=== PATIENT | male | born 2000 | race Hispanic/Latino ===

== ENCOUNTER 2023-09-02 10:43 | Emergency (ER) | payer MEDICAID, SELFPAY ==
[2023-09-02 10:44] VITALS: BP 154/99; PULSE 83; RESP 16; TEMP 36.8; O2SAT 100; BMI 30.4
--- NOTE | 2023-09-02 11:01 | EDS_ITS ---
HPI History of Present Illness Chief Complaint: Sore Throat Narrative Narrative: 23-year-old male who denies significant past medical history except for smoking marijuana on occasion, presents with sore throat, and reported bleeding from his throat. He states his symptoms began yesterday. Over the last 24 hours he has spit up blood-tinged saliva, but states it became worse to the point where he reportedly spit up to red solo cups worth of blood. He does not take blood thinners. He states that he saw an emergency department where he lives in [facility]. At that time, he was told that he may have more of a tonsillar bleed. He woke up this morning with blood in his throat. He denies any other bleeding diathesis. He is concerned about bleeding and soreness in his throat. PFSH PFSH Allergy/AdvReac Type Severity Reaction Status Date / Time No Known Allergies Allergy Verified 09/02/23 10:46 Social History Smoking Status: Never smoker ROS ROS ED ROS Narrative Constitutional: No fever, no chills. HEENT: Today sore throat. Positive bleeding in throat, blood pooling in throat this morning. No neck pain. No loss of vision. No rhinorrhea. Cardiovascular: No chest pain. No palpitations. No pedal edema. Respiratory: Occasional cough, no shortness of breath. Abdominal: No abdominal pain. No nausea. No vomiting. Genitourinary: No dysuria. No hematuria. Musculoskeletal: No myalgias. No arthralgias. Neurologic: No headaches. No dizziness. No lightheadedness. Skin: No rash. No change in color. Psychiatric: No depression. No anxiety. EXAM Physical Exam Narrative Exam Narrative: Afebrile. Vital signs noted. HEENT: Normocephalic. Atraumatic. PERRL, EOMI. Neck soft and supple. No point tenderness or step off. No active bleeding of throat or tonsil. No fresh or dried blood in posterior pharynx. Airway patent. No drooling or trismus. Cardiovascular: Regular rate and rhythm. No murmurs, rubs, or gallops appreciated. Respiratory: No tachypnea. Lungs clear to auscultation bilaterally. Gastrointestinal: Abdomen soft, nontender, with normoactive bowel sounds. No rebound or guarding. Neurological: Awake. Alert. Nonfocal, nonlateralizing. Skin: No rash. Normal color. No pallor. Musculoskeletal: No pedal edema. Full range of motion extremities. Const Vital Signs: 09/02/23 10:44 Temperature 98.2 F Temperature Source Temporal Pulse Rate 83 Respiratory Rate 16 Blood Pressure 154/99 H Blood Pressure Mean 117 Pulse Ox 100 Oxygen Delivery Method Room Air MDM MDM MDM Narrative Medical decision making narrative: There are no active signs of bleeding in the patient's throat or noted otherwise on the exam. He requested a chest x-ray be performed. He could be having slight hemoptysis from bronchitis as his pulse ox is 100% on room air. Two-view chest x-ray will be obtained to help rule out any hemothorax or consolidation. I would suspect to see blood on x-ray if he aspirated or had a profuse amount of bleeding throughout the night. As there is no active bleeding, and he does not appear pallor, I do not feel that any laboratory work is indicated. Given his sore throat I attained x-rays of the neck as well. I do not feel that any respiratory swabs or strep swab is indicated. He has no clinical signs of acute pharyngitis. X-rays of the soft tissue neck interpreted by myself independently shows no evidence of obstruction or epiglottitis. Additionally, chest x-ray in 2 views also interpreted by myself independently shows no evidence of hemothorax or consolidation, no pneumothorax. I reviewed the radiology reports on both of these x-rays which confirms my independent interpretations. At this point in time, as he has no active bleeding from his throat, I feel he can be discharged to follow-up. He was referred to otolaryngology on-call. He will return with increased bleeding, new or worsening symptoms. I do not feel he requires admission or transfer. Disposition is discharged home in stable condition. History & Record Review Discussion w/independent historian: Patient Additional record(s) reviewed:: No prior records Radiography Diagnostic Testing: Clinical Impression(s) from Imaging Studies Chest X-Ray 09/02/23 11:11 IMPRESSION: No radiographic evidence of acute cardiopulmonary disease. Electronically Signed: Cody Ricardo MD at 11:23 EST , Soft Tissue Neck X-Ray 09/02/23 11:11 IMPRESSION: Negative neck x-rays. Electronically Signed: Cody Ricardo MD at 11:24 EST , Discharge Plan Triage Chief Complaint: Sore Throat ED Provider: Cody Nunez Dx/Rx/DC Orders Clinical Impression: Bleeding from throat, Throat pain in adult Instructions: ED Pain, Acute, Uncertain Cause Primary Care Provider: Care Physician,No Primary Referrals: Corona Ratliff MD [Med Staff - Active Staff] - As soon as possible NOT,DEFINED [Non-Staff] - Activity Restrictions/Additional Instructions: Return with increased bleeding from throat, new or worsening symptoms. Disposition Disposition: Home, Self Care
--- NOTE | 2023-09-02 11:11 | RAD_ITS ---
EXAM: XR SOFT TISSUE NECK CLINICAL INDICATION: sore throat TECHNIQUE: Frontal and lateral views of the soft tissues of the neck. COMPARISON: No relevant prior studies available. FINDINGS: AIRWAY: Unremarkable. Grossly patent. SOFT TISSUES: Unremarkable. No radiopaque foreign body. No pathologic thickening or enlargement of the epiglottis. RAD/Neck for Soft Tissue IMPRESSION: Negative neck x-rays. Electronically Signed: Cody Ricardo MD at 11:24 EST ,
--- NOTE | 2023-09-02 11:11 | RAD_ITS ---
EXAM: XR CHEST, 2 VIEWS CLINICAL INDICATION: cough TECHNIQUE: Frontal and lateral views of the chest. COMPARISON: No relevant prior studies available. FINDINGS: LUNGS AND PLEURAL SPACES: Unremarkable. No consolidation or edema. No pneumothorax. No effusion. HEART: Unremarkable. Cardiac silhouette not enlarged. MEDIASTINUM: Central airways and mediastinal contour are unremarkable. BONES/JOINTS: Unremarkable. No acute fracture. SOFT TISSUES: Unremarkable. RAD/Chest PA and Lateral IMPRESSION: No radiographic evidence of acute cardiopulmonary disease. Electronically Signed: Cody Ricardo MD at 11:23 EST ,
--- OUTSIDE RECORDS SUMMARY | 2023-09-02 12:40 | XMS RPT_ITS | CCD ---
Author Name Unknown Address [address] [place] [address] Organization [facility] Care Team Providers Care Quality Tech Name Role Phone Unavailable Primary Care Provider JYOTI Moreland Attending Unavailable JYOTI RAWLS Referring Unavailable CHARISSE CYR, HUMBERTO Russell Attending Michael ZHENG MD, TONJA Mei Primary Care Unavaila ble Unavailable Primary Care Provider Michael rhoades Medications Current Medications Medication Drug Class(es) Dates Sig (Normalized) Sig (Original) benzonatate 100 mg oral capsule (1 source) Non-narcotic Antitussive Start: 06-24-2022 End: 07-01-2022 take 2 capsules by mouth three times daily as needed benzonatate (TESSALON PERLES) 100 mg capsule Indications: Moderate persistent asthmatic bronchitis without complication Take 2 capsules by mouth three times daily as needed for up to 7 days. 42 capsule 0 06/24/2022 07/01/2022 Active Completed/Discontinued Medications Medication Drug Class(es) Dates Sig (Normalized) Sig (Original) [id number] 200 actuat albuterol 0.09 mg/actuat metered dose inhaler (8 sources) beta2-Adrenergic Agonist Start: 06-24-2022 End: 07-01-2022 take 2 puff(s) by inhalation four times daily as needed for wheezing albuterol HFA (PROVENTIL HFA, VENTOLIN HFA) 90 mcg/actuation inhaler Indications: Moderate persistent asthmatic bronchitis without complication Inhale 2 Puffs as instructed four times daily as needed for wheezing/shortness of breath for up to 7 days. 1 Each 0 06/24/2022 Active Problems Problem Classification Problem Date Documented Date Episodic/Chronic Asthma (2 sources) Uncomplicated moderate persistent asthma; Translations: [Moderate persistent asthma, uncomplicated] Onset: 06-24-2022 Chronic Immunizations and screening for infectious disease (2 sources) Suspected disease caused by 2019-nCoV; Translations: [Suspected COVID-19 virus infection] Episodic Results Test Name Value Interpretation Reference Range Facil ity Vital Signs Date Time Vital Sign Value Performing Clinician Teresa bacon 01-06-2023 12:57-0400 Body temperature 97.59 [degF] Walter Hylton MD Work Phone: [facility] 01-06-2023 12:57-0400 Body weight 105.33 kg Walter Hylton MD Work Phone: [facility] 01-06-2023 12:57-0400 Diastolic blood pressure 70 mm[Hg] Walter Hylton MD Work Phone: [facility] 01-06-2023 12:57-0400 Heart rate 71 /min Walter Hylton MD Work Phone: [facility] 01-06-2023 12:57-0400 Respiratory rate 18 /min Walter Hylton MD Work Phone: [facility] 01-06-2023 12:57-0400 SaO2% (BldA) [Mass fraction] 99 % Walter Hylton MD Work Phone: [facility] 01-06-2023 12:57-0400 Systolic blood pressure 140 mm[Hg] Walter Hylton MD Work Phone: [facility] 06-24-2022 09:06-0400 Body temperature 98.01 [degF] [facility] [place] Work Phone: [facility] 06-24-2022 09:06-0400 Body weight 92.99 kg [facility] [place] Work Phone: [facility] 06-24-2022 09:06-0400 Diastolic blood pressure 78 mm[Hg] [facility] [place] Work Phone: [facility] 06-24-2022 09:06-0400 Heart rate 85 /min [facility] [place] Work Phone: [facility] 06-24-2022 09:06-0400 Respiratory rate 18 /min [facility] [place] Work Phone: [facility] 06-24-2022 09:06-0400 SaO2% (BldA) [Mass fraction] 100 % [facility] [place] Work Phone: [facility] 06-24-2022 09:06-0400 Systolic blood pressure 123 mm[Hg] [facility] [place] Work Phone: [facility] 05-07-2022 10:08-0400 Body temperature 97.7 [degF] Re [place] X RAY SERVICE ENGINEER.BERRY PLANTER Work Phone: [facility] 05-07-2022 10:08-0400 Body weight 91.63 kg Re [place] X RAY SERVICE ENGINEER.BERRY PLANTER Work Phone: [facility] 05-07-2022 10:08-0400 Diastolic blood pressure 80 mm[Hg] Re [place] X RAY SERVICE ENGINEER.BERRY PLANTER Work Phone: [facility] 05-07-2022 10:08-0400 Heart rate 61 /min Re [place] X RAY SERVICE ENGINEER.BERRY PLANTER Work Phone: [facility] 05-07-2022 10:08-0400 SaO2% (BldA) [Mass fraction] 99 % Re [place] X RAY SERVICE ENGINEER.BERRY PLANTER Work Phone: [facility] 05-07-2022 10:08-0400 Systolic blood pressure 122 mm[Hg] Re [place] X RAY SERVICE ENGINEER.BERRY PLANTER Work Phone: [facility] Encounters Encounter Date Encounter Type Care Provider Facility Start: 01-08-2023 Telephone encounter Alexsandra Yordy nner X RAY SERVICE ENGINEER.BERRY PLANTER Work Phone: [facility] [place] Procedures Date Procedure Procedure Detail Performing Clinician Start: 01-06-2023 Iadna chlamydia trachomatis amplified probe tq Walter Hylton MD Work Phone: Start: 06-24-2022 Radiologic exam ches t 2 views Jyoti Rawls DO Work Phone: Plan of Treatment Date Care Activity Detail Author Start: 05-01-2023 [facility] Start: 08-31-2022 DEPRESSION ASSESSMENT DEPRESSION ASSESSMENT [facility] Start: 05-07-2022 End: 05-21-2022 Influenza virus A and B RNA and SARS-CoV-2 (COVID-19) N gene panel - Respiratory specimen by AVANI with probe detection COVID WITH FLUA+B, ROUTINE Microbiology Routine Suspected COVID-19 virus infection Expected: 05/07/2022, Expires: 05/21/2022 [facility] Work Phone: Payers Date Payer Category Payer Unknown [id number] 2015 Medicaid [id number] 2015 Medicaid [id number] 2001 Unknown [id number] Social History Date Type Detail Facility Start: 05-07-2022 Tobacco smoking status [place]IS Occasional tobacco smoker [facility] History of tobacco use Cigarette Smoker [facility] Start: 2000 Sex Assigned At Not on file [facility] Start: 04-27-2022 End: 06-24-2022 Exposure to SARS-CoV-2 (event) Not sure [facility] Work Phone: Start: 06-24-2022 Tobacco smoking status OKIS Smokes tobacco daily [facility] Start: 06-24-2022 End: 01-06-2023 Tobacco use and exposure Smokeless tobacco non-user [facility] Start: 06-24-2022 Alcohol intake Ex-drinker (finding) [facility] Start: 01-06-2023 Tobacco smoking status [place] Never smoked tobacco [facility] Start: 01-06-2023 Alcohol intake Current drinke r of alcohol (finding) [facility] Start: 01-06-2023 Alcohol Comment once a month [facility] NEGATED: Highlighted rowStart: NINF History of tobacco use Passive smoker [facility] Clinical Notes 05-07-2022 to 01-08-2023 Telephone Encounter - Amy Mullen LPN - 01/08/2023 1:08 PM EDTTelephone Encounter - Liya Vila LPN - 01/08/2023 10:08 AM Malina Hylton MD - 01/06/2023 2:58 PM EDTPatient Instructions Note Date & Type Note [facility] 01-08-2023 Miscellaneous Notes Formattin g of this note might be different from the original. Incoming call to discuss results with pt. Pt voiced understanding of results. No further concerns. Amy Mullen LPN Message left to return call. Liya Vila LPN ----- Message from Alexsandra Vaz APRN.BERRY PLANTER sent at 01/07/2023 8:15 AM EDT ----- Please notify patient of negative STI results. documented in this encounter [facility] 01-06-2023 History of Presen t illness Narrative Jeffery Davis is a 22 year old male who presents with STD (Patient states he was exposed to gonorrhea about 1 week ago//Denies symptoms at this time /). Notes that partner was treated. Patient denies any symptoms at this time. No past medical history on file. There is no problem list on file for this patient. Current Outpatient Medications Medication Sig Dispense Refill atomoxetine (STRATTERA) 40 mg capsule Take 40 mg by mouth once daily. albuterol HFA (PROVENTIL HFA, VENTOLIN HFA) 90 mcg/actuation inhaler Inhale 2 Puffs as instructed every 4 hours as needed for wheezing/shortness of breath. 1 Each 0 dexAMETHasone (DECADRON) 4 mg tablet Take 1 tablet by mouth once daily. (Patient not taking: Reported on 01/06/2023) 4 tablet 0 albuterol HFA (PROVENTIL HFA, VENTOLIN HFA) 90 mcg/actuation inhaler Inhale 2 Puffs as instructed four times daily as needed for wheezing/shortness of breath for up to 7 days. 1 Each 0 No current facility-administered medications for this visit. Social History Tobacco Use Smoking status: Never Passive exposure: Never Smokeless tobacco: Never Vaping Use Vaping Use: Never used Substance Use Topics Alcohol use: Yes Comment: once a month Drug use: Yes Types: Marijuana Alcohol Use: Yes (once a month) Tobacco Use: Never No family history on file. Review of Systems Constitutional: Negative. HENT: Negative. Eyes: Negative. Respiratory: Negative. Cardiovascular: Negative. Gastrointestinal: Negative. Genitourinary: Negative. Musculoskeletal: Negative. Skin: Negative. Neurological: Negative. Endo/Heme/Allergies: Negative. Psychiatric/Behavioral: Negative. BP 140/70 Pulse 71 Temp (Src) 97.6 (Temporal) Resp 18 Wt 232 lb 3.2 oz (105.3kg) SpO2 99% Physical Exam Constitutional: Appearance: Normal appearance. HENT: Head: Normocephalic and atraumatic. Mouth/Throat: Mouth: Mucous membranes are moist. Eyes: Conjunctiva/sclera: Conjunctivae normal. Pulmonary: Effort: Pulmonary effort is normal. Musculoskeletal: General: Normal range of motion. Cervical back: Normal range of motion. Neurological: General: No focal deficit present. Mental Status: He is alert and oriented to person, place, and time. Psychiatric: Mood and Affect: Mood normal. ASSESSMENT/PLAN: 1. STD exposure - ICD9: V01.6, ICD10: Z20.2 - GC/CHLAMYDIA AMPLIF, URINE - CEFTRIAXONE 500 MG SOLUTION FOR INJECTION - AZITHROMYCIN 500 MG TABLET Walter Hylton MD documented in this encounter [facility] 06-24-2022 Note HNO ID: [id number] Author: Zachary Orourke RT(R) Service: ? Author Type: Technologist Type: Progress Notes Filed: 06/24/2022 11:18 AM Note Text: Radiology Service Progress Note PATIENT NAME: Jeffery Davis DATE OF SERVICE: June 24, 2022 TIME: 11:17 AM PATIENT IDENTITY VERIFICATION COMPLETED USING TWO (2) IDENTIFIERS: Name and Date of confirmed by patient verbally. FALL SCREENING: Has the patient had 2 falls in the last year or 1 fall with injury or currently using an Ambulatory Assistive Device (Walker, Cane, Wheelchair, Crutches, etc.)? No PATIENT GENDER DATA: Male PATIENT RELEVANT IMPLANT DATA REVIEWED: Not Applicable RADIOLOGY DEPARTMENT: General X-ray: Exam(s) Completed: Chest X-Ray PERIPHERAL IV DATA: Not applicable SIGNED BY: Zachary Orourke RT(R) June 24, 2022 11:17 AM [facility] 06-24-2022 Note HNO ID: [id number] Author: Jyoti Rawls, DO Service: ? Author Type: Physician Type: Progress Notes Filed: 06/24/2022 10:34 AM Note Text: Jeffery Davis is a 21 year old MALE who presents with Cough (Over 1 month) HPI History reviewed. No pertinent past medical history. There is no problem list on file for this patient. Current Outpatient Medications Medication Sig Dispense Refill albuterol HFA (PROVENTIL HFA, VENTOLIN HFA) 90 mcg/actuation inhaler Inhale 2 Puffs as instructed every 4 hours as needed for wheezing/shortness of breath. 1 Each 0 No current facility-administered medications for this visit. Social History Tobacco Use Smoking status: Every Day Types: Cigarettes Passive exposure: Never Smokeless tobacco: Never Vaping Use Vaping Use: Never used Substance Use Topics Alcohol use: Not Currently Alcohol Use: Not Currently Tobacco Use: Types: Cigarettes History reviewed. No pertinent family history. Review of Systems Respiratory: Positive for cough, sputum production and wheezing. All other systems reviewed and are negative. BP 123/78 Pulse 85 Temp 98 Resp 18 Wt 205 lb (93.0kg) SpO2 100% Physical Exam Vitals and nursing note reviewed. Constitutional: Appearance: Normal appearance. HENT: Head: Normocephalic. Right Ear: Tympanic membrane normal. Left Ear: Tympanic membrane normal. Nose: Congestion and rhinorrhea present. Mouth/Throat: Pharynx: Posterior oropharyngeal erythema present. Cardiovascular: Rate and Rhythm: Normal rate and regular rhythm. Pulses: Normal pulses. Heart sounds: Normal heart sounds. Pulmonary: Effort: Pulmonary effort is normal. Breath sounds: Wheezing and rhonchi present. Skin: General: Skin is warm. Capillary Refill: Capillary refill takes less than 2 seconds. Neurological: General: No focal deficit present. Mental Status: He is alert. Psychiatric: Mood and Affect: Mood normal. ASSESSMENT/PLAN: 1. Moderate persistent asthmatic bronchitis without complication - ICD9: 493.90, ICD10: J45.40 Cough variant Asthma - Avoidance of triggers recommended - Asthma Action Plan reviewed Jyoti Rawls [facility] 06-24-2022 History of Presen t illness Narrative Jeffery Davis is a 21 year old MALE who presents with Cough (Over 1 month) HPI History reviewed. No pertinent past medical history. There is no problem list on file for this patient. Current Outpatient Medications Medication Sig Dispense Refill albuterol HFA (PROVENTIL HFA, VENTOLIN HFA) 90 mcg/actuation inhaler Inhale 2 Puffs as instructed every 4 hours as needed for wheezing/shortness of breath. 1 Each 0 No current facility-administered medications for this visit. Social History Tobacco Use Smoking status: Every Day Types: Cigarettes Passive exposure: Never Smokeless tobacco: Never Vaping Use Vaping Use: Never used Substance Use Topics Alcohol use: Not Currently Alcohol Use: Not Currently Tobacco Use: Types: Cigarettes History reviewed. No pertinent family history. Review of Systems Respiratory: Positive for cough, sputum production and wheezing. All other systems reviewed and are negative. BP 123/78 Pulse 85 Temp 98 Resp 18 Wt 205 lb (93.0kg) SpO2 100% Physical Exam Vitals and nursing note reviewed. Constitutional: Appearance: Normal appearance. HENT: Head: Normocephalic. Right Ear: Tympanic membrane normal. Left Ear: Tympanic membrane normal. Nose: Congestion and rhinorrhea present. Mouth/Throat: Pharynx: Posterior oropharyngeal erythema present. Cardiovascular: Rate and Rhythm: Normal rate and regular rhythm. Pulses: Normal pulses. Heart sounds: Normal heart sounds. Pulmonary: Effort: Pulmonary effort is normal. Breath sounds: Wheezing and rhonchi present. Skin: General: Skin is warm. Capillary Refill: Capillary refill takes less than 2 seconds. Neurological: General: No focal deficit present. Mental Status: He is alert. Psychiatric: Mood and Affect: Mood normal. ASSESSMENT/PLAN: 1. Moderate persistent asthmatic bronchitis without complication - ICD9: 493.90, ICD10: J45.40 Cough variant Asthma - Avoidance of triggers recommended - Asthma Action Plan reviewed Jyoti Rawls documented in this encounter [facility] 05-08-2022 Miscellaneous Notes Formattin g of this note might be different from the original. Patient returned call and given provider's message below and patient verbalized understanding. Yves Ramirez RN Unable to reach patient and voice mail not set up yet-try again later.Myah Chamberlain LPN Negative for flu and covid please notify thank you documented in this encounter [facility] 05-07-2022 Note HNO ID: [id number] Author: Re Quintana APRN.BERRY PLANTER Service: ? Author Type: Nurse Practitioner Type: Progress Notes Filed: 05/07/2022 10:48 AM Note Text: Subjective Cough Associated symptoms include headaches and shortness of breath. Pertinent negatives include no chills, no ear pain, no sore throat, no wheezing and no eye redness. Jeffery Davis is a 21 year old male who presents with cough, SOB, and fatigue x 3 days. Reports SOB worst at night while lying flat that prevents him from sleeping. Reports having a history of asthma that he was previously on multiple inhalers for, but has not required treatment in years. Reports being around other sick people, but not sure if they had COVID-19. Review of Systems Constitutional: Positive for malaise/fatigue. Negative for chills and fever. HENT: Positive for congestion. Negative for ear pain, sinus pain and sore throat. Eyes: Negative for pain, discharge and redness. Respiratory: Positive for cough and shortness of breath. Negative for sputum production and wheezing. Gastrointestinal: Negative for abdominal pain, nausea and vomiting. Skin: Negative for rash. Neurological: Positive for headaches. BP 122/80 Pulse 61 Temp 36.5 ?C (97.7 ?F) (Tympanic) Wt 91.6 kg (202 lb) SpO2 99% History reviewed. No pertinent past medical history. No past surgical history on file. ALLERGIES Patient has no known allergies. MEDICATIONS albuterol HFA (PROVENTIL HFA, VENTOLIN HFA) 90 mcg/actuation inhaler Inhale 2 Puffs as instructed every 4 hours as needed for wheezing/shortness of breath. Inhalational Spacing Device 1 Device one time only for 1 dose. No family history on file. Social History Tobacco Use Smoking status: Some Days Types: Cigarettes Passive exposure: Never Objective Physical Exam Vitals and nursing note reviewed. Constitutional: Appearance: Normal appearance. HENT: Right Ear: Tympanic membrane and ear canal normal. Left Ear: Tympanic membrane and ear canal normal. Nose: Congestion present. Mouth/Throat: Pharynx: No oropharyngeal exudate or posterior oropharyngeal erythema. Eyes: Conjunctiva/sclera: Conjunctivae normal. Pupils: Pupils are equal, round, and reactive to light. Cardiovascular: Rate and Rhythm: Normal rate and regular rhythm. Pulmonary: Breath sounds: Normal breath sounds. Skin: General: Skin is warm and dry. Neurological: Mental Status: He is alert. ASSESSMENT/PLAN: 1. Suspected COVID-19 virus infection - ICD9: V01.79, ICD10: Z20.822 - COVID WITH FLUA+B, ROUTINE - ALBUTEROL SULFATE HFA 90 MCG/ACTUATION AEROSOL INHALER - INHALATIONAL SPACING DEVICE Viky Dyer APRN student - Follow-up with your PCP in 3-5 days if symptoms have not improved or sooner if symptoms worsen - Discussed red flags and need for immediate medical evaluation if any occur. - Discussed supportive care treatment with fluids, rest and analgesia. - Discussed expected course of illness TEACHING PROVIDER (Physician/PA/X RAY SERVICE ENGINEER) NOTE OF PERSONAL INVOLVEMENT IN CARE: I have personally seen and examined the patient and performed the medical decision-making components. I have reviewed the Advanced Practice Registered Nurse (X RAY SERVICE ENGINEER) Student's documentation and verified the findings in the note as written. Any additions or changes are noted in bold/italics. Signature: Re Quintana Date: 05/07/2022 Time: 10:47 AM [facility] 05-07-2022 History of Presen t illness Narrative Subjective Cough Associated symptoms include headaches and shortness of breath. Pertinent negatives include no chills, no ear pain, no sore throat, no wheezing and no eye redness. Jeffery Davis is a 21 year old male who presents with cough, SOB, and fatigue x 3 days. Reports SOB worst at night while lying flat that prevents him from sleeping. Reports having a history of asthma that he was previously on multiple inhalers for, but has not required treatment in years. Reports being around other sick people, but not sure if they had COVID-19. Review of Systems Constitutional: Positive for malaise/fatigue. Negative for chills and fever. HENT: Positive for congestion. Negative for ear pain, sinus pain and sore throat. Eyes: Negative for pain, discharge and redness. Respiratory: Positive for cough and shortness of breath. Negative for sputum production and wheezing. Gastrointestinal: Negative for abdominal pain, nausea and vomiting. Skin: Negative for rash. Neurological: Positive for headaches. BP 122/80 Pulse 61 Temp 36.5 C (97.7 F) (Tympanic) Wt 91.6 kg (202 lb) SpO2 99% History reviewed. No pertinent past medical history. No past surgical history on file. ALLERGIES Patient has no known allergies. MEDICATIONS albuterol HFA (PROVENTIL HFA, VENTOLIN HFA) 90 mcg/actuation inhaler Inhale 2 Puffs as instructed every 4 hours as needed for wheezing/shortness of breath. Inhalational Spacing Device 1 Device one time only for 1 dose. No family history on file. Social History Tobacco Use Smoking status: Some Days Types: Cigarettes Passive exposure: Never Objective Physical Exam Vitals and nursing note reviewed. Constitutional: Appearance: Normal appearance. HENT: Right Ear: Tympanic membrane and ear canal normal. Left Ear: Tympanic membrane and ear canal normal. Nose: Congestion present. Mouth/Throat: Pharynx: No oropharyngeal exudate or posterior oropharyngeal erythema. Eyes: Conjunctiva/sclera: Conjunctivae normal. Pupils: Pupils are equal, round, and reactive to light. Cardiovascular: Rate and Rhythm: Normal rate and regular rhythm. Pulmonary: Breath sounds: Normal breath sounds. Skin: General: Skin is warm and dry. Neurological: Mental Status: He is alert. ASSESSMENT/PLAN: 1. Suspected COVID-19 virus infection - ICD9: V01.79, ICD10: Z20.822 - COVID WITH FLUA+B, ROUTINE - ALBUTEROL SULFATE HFA 90 MCG/ACTUATION AEROSOL INHALER - INHALATIONAL SPACING DEVICE Viky Dyer APRN student - Follow-up with your PCP in 3-5 days if symptoms have not improved or sooner if symptoms worsen - Discussed red flags and need for immediate medical evaluation if any occur. - Discussed supportive care treatment with fluids, rest and analgesia. - Discussed expected course of illness TEACHING PROVIDER (Physician/PA/X RAY SERVICE ENGINEER) NOTE OF PERSONAL INVOLVEMENT IN CARE: I have personally seen and examined the patient and performed the medical decision-making components. I have reviewed the Advanced Practice Registered Nurse (X RAY SERVICE ENGINEER) Student's documentation and verified the findings in the note as written. Any additions or changes are noted in bold/italics. Signature: Re Quintana Date: 05/07/2022 Time: 10:47 AM documented in this encounter [facility] 05-07-2022 Instructions Viky Dyer - 05/07/2022 10:37 AM EDT ASSESSMENT/PLAN: 1. Suspected COVID-19 virus infection - ICD9: V01.79, ICD10: Z20.822 - COVID WITH FLUA+B, ROUTINE - ALBUTEROL SULFATE HFA 90 MCG/ACTUATION AEROSOL INHALER - INHALATIONAL SPACING DEVICE Viky Dyer APRN student How to Manage Common Symptoms Associated with COVID for Adults Fever- Fever is a temperature over 100.4 F and can occur when the body is fighting an infection. To help treat a fever: Drink plenty of fluids and stay well hydrated. Eat small amounts of easy to digest food. Rest. Your body needs rest to recover, but getting up and moving around the house frequently is a good idea. You should try to continue doing your normal daily activities (bathing, toileting, grooming, cooking), though you will probably feel tired, and need to rest often. Avoid any heavy activity or exercise, as this will increase your body temperature. Dress in light clothing and stay covered in a light sheet. Keep the room temperature cool. Take a slightly warm (not cold or cool) bath, or apply damp washcloths to the forehead and wrists. Cough- Cough is a common symptom associated with COVID and can be bothersome. To help treat a cough: Stay well hydrated. Try warm water or tea with lemon and/or honey to help soothe the cough. Use a humidifier to add moisture to the air. Try a product with menthol, like a cough drop or a rub for your chest such as Vicks, which can help reduce cough. Try cough drops. Avoid smoking and other strong odors or perfumes. Try breathing exercises to keep your lungs open and clear. Take a big deep breath through your nose and hold for 5 seconds before slowly releasing. Repeat frequently, while you are awake. Congestion- Runny nose or nasal congestion can occur with COVID. Treatment can help relieve symptoms: Try OTC nasal saline spray, or nasal saline rinse to relieve mucus congestion. Nasal strips can help keep nasal passages open, to increase airflow. Elevating your head with an extra pillow in bed can help reduce congestion. Using a humidifier can increase moisture in the air, and make breathing easier. Sore Throat- Another common symptom with COVID, can be managed at home by: Stay well hydrated. Gargle with salt water - mix teaspoon salt with 1 cup of warm water and gargle. This helps to loosen mucus in the back of the throat and may reduce discomfort. Try ice chips, popsicles or lozenges to soothe the throat. Nausea/Vomiting/Diarrhea- These are common symptoms, and staying hydrated is most important. If you are nauseous or vomiting, start with small sips of water every 10-15 minutes and increase as tolerated. You can try sucking an ice cube too. If tolerating, you can try pedialyte or Gatorade, or flat sprite or shalini-alejandro. Start slowly and increase as you are able to. Instead of meals, try smaller, more frequent snacks. Try eating bland foods like crackers, toast, rice, and applesauce. Avoid spicy, greasy or fried foods and dairy containing foods. Even if you aren't feeling hungry due to lack of smell or taste, it is important to try to take in some food when you are able. After drinking and eating, rest in an upright position for up to two hours as needed to help decrease nauseous feelings. Try closing your eyes, avoid moving and watching TV. Avoid strong odors that can make you feel more nauseated. When to seek emergency medical attention Look for emergency warning signs for COVID-19. If having any of these symptoms, seek emergency medical care immediately: Trouble breathing Persistent pain or pressure in the chest New confusion Inability to wake or stay awake Bluish lips or face *This list is not all possible symptoms. Please call your medical provider for any other symptoms that are severe or concerning to you. Beginning Home Isolation Isolation is used to separate people infected with SARS-CoV-2, the virus that causes COVID-19, from people who are not infected. People who are in isolation should stay home until it s safe for them to be around others. In the home, anyone sick or infected should separate themselves from others by staying in a specific sick room or area and using a separate bathroom (if available). Isolation or Quarantine: What's the difference? Quarantine keeps someone who might have been exposed to the virus away from others. Isolation keeps someone who is infected with the virus away from others, even in their home. Who needs to isolate People who have COVID-19 People who have symptoms of COVID-19 and are able to recover at home People who have no symptoms (are asymptomatic) but have tested positive for infection with SARS-CoV-2 Steps to take Stay home except to get medical care Monitor your symptoms. Stay in a separate room from other household members, if possible Use a separate bathroom, if possible Avoid contact with other members of the household and pets Don t share personal household items, like cups, towels, and utensils Wear a mask when around other people, if you are able to When to seek emergency medical attention Look for emergency warning signs* for COVID-19. If someone is showing any of these signs, seek emergency medical care immediately: Trouble breathing Persistent pain or pressure in the chest New confusion Inability to wake or stay awake Bluish lips or face *This list is not all possible symptoms. Please call your medical provider for any other symptoms that are severe or concerning to you. Call 911 or call ahead to your local emergency facility: Notify the buggy operator that you are seeking care for someone who has or may have COVID-19. Ending Home Isolation - When you can be around others after you had or likely had COVID-19 When you can be around others after you had or likely had COVID-19 If You Test Positive for COVID-19 (Isolation) Everyone, regardless of vaccination status: Stay home for 5 days. Note: Day 0 is your first day of symptoms or the date of collection of a positive viral test if no symptoms. Day 1 is the first full day after symptoms developed or test specimen was collected. If you have no symptoms or your symptoms are resolving after 5 days, you can leave your house. Continue to wear a mask around others for 5 additional days. If you have a fever, continue to stay home until your fever resolves, even if it is longer than 5 days. If You Were Exposed to Someone with COVID-19 (Quarantine) If you: 1. Have been boosted OR 2. Completed the primary series of Pfizer or Moderna vaccine within the last 6 months OR 3. Completed the primary series of J&J vaccine within the last 2 months THEN: 1. Wear a mask around others for 10 days. 2. Test on day 5, if possible. If you develop symptoms get a test and stay home. If You Were Exposed to Someone with COVID-19 (Quarantine) If you: 1. Completed the primary series of Pfizer or Moderna vaccine over 6 months ago and are not boosted OR 2. Completed the primary series of J&J over 2 months ago and are not boosted OR 3. Are unvaccinated THEN: 1. Stay home for 5 days. After that continue to wear a mask around others for 5 additional days. 2. If you can't quarantine you must wear a mask for 10 days. 3. Test on day 5 if possible. If you develop symptoms get a test and stay home. I had COVID-19 or I tested positive for COVID-19 and I have a weakened immune system If you have a weakened immune system (immunocompromised) due to a health condition or medication, you might need to stay home and isolate longer than 10 days. Talk to your healthcare provider for more information. Your doctor may work with an infectious disease expert at your local health department to determine when you can be around others. ASTHMA GENERAL INFORMATION: Asthma is a chronic condition caused by narrowing of the air passages in the lungs. It may be triggered by pollen, dust, animal dander, molds, some foods, respiratory infections, exposure to smoke or fumes, exercise or emotional stress. It often comes on when the weather changes. The most common symptoms are wheezing, shortness of breath, and cough. Repeat attacks are common. INSTRUCTIONS: 1. Avoid exposure to pollen, dust, animal dander, molds, smoke, and other things that cause attacks at home and at work. Even if you are not sure what causes your attacks, you may have fewer attacks if you reduce the amount of dust in your home. Replacing you pillows or mattress with materials that do not cause allergies may also help. 2. Drink 8 to 10 glasses of water or other liquids each day to help thin mucus so that it can be coughed up more easily. 3. You should try to be as physically active as possible. If a certain type of exercise causes an attack, you should try to avoid it. If you have an attack following exercise, you should sit and rest. 4. You may have been instructed to use a peak flow meter to monitor your asthma. Follow the directions you were given. 5. Take your medication as prescribed. Do not overuse your inhalers! CALL YOUR DOCTOR IF: 1. You have wheezing and shortness of breath even though you are taking medicine to prevent attacks. 2. You develop a temperature over 100.4 F (38 C), muscle aches, chest pain, thickening of mucus, or a change in the color of mucus to yellow, green, lanier, or bloody. 3. You have any problems that may be related to the medicine you are taking. RETURN TO THE ED IF: 1. You have an asthma attack that is not relieved by treatment with your usual medicines. 2. You have increasing shortness of breath. documented in this encounter [facility] Diagnosis Moderate persistent asthmatic bronchitis without complication- Primary [facility] Diagnosis STD exposure- Primary documented in this encounter [facility] Summary Purpose Family History No Family History Records FoundNo Family History Records FoundNo Family History Records FoundNo Family History Records Found Advance Directives No Advanced Directives Records FoundNo Advanced Directives Records FoundNo Advanced Directives Records FoundNo Advanced Directives Records Found Reason for Referral Specialty Diagnoses / Procedures Referred By Tiana t Referred To Contact Diagnoses Suspected COVID-19 virus infection Re Quintana, STUART.BERRY PLANTER [address] [facility] [place] [address] Referral ID Status Reason Start Date Expiration Date Visits Re quested Visits Authorized [id number] Closed 1 1 Health Concerns Infection Onset Date Last Indicated Resolved Time COVID-19 Rule-Out 05/07/2022 05/07/2022 Medications Administered Section Inactive Administered Medications - up to 3 most recent administrations Medication Order MAR Action Action Date Dose Rate Site azithromycin 1,000 mg tab(s) (ZITHROMAX) 1,000 mg, ORAL, ONCE, 1 dose, On Thu01/06/23 at 1430, Please document the antimicrobial indication: Empiric Given 01/06/2023 2:31 PM EDT 1,000 mg cefTRIAXone 500 mg intramuscular injection (ROCEPHIN) 500 mg, INTRAMUSCULAR, ONCE, 1 dose, On Thu01/06/23 at 1430, Please document the antimicrobial indication: Empiric Given 01/06/2023 2:31 PM EDT 500 mg Buttocks, Left Additional Source Comments (unrecognized sect ion and content) No Status Records FoundNo Status Records FoundNo Status Records FoundNo Status Records Found INFORMATION SOURCE (unrecogn ized section and content) DATE CREATED AUTHOR AUTHOR'S ORGANIZ ATION 05/08/2022 [facility] DATE CREATED AUTHOR AUTHOR'S ORGANIZ ATION 06/25/2022 [facility] DATE CREATED AUTHOR AUTHOR'S ORGANIZ ATION 10/22/2022 [facility] ([place]) Source Comments (unrecognize d section and content) In the event this informatio n is protected by the Federal Confidentiality of Alcohol and Drug Abuse Patient Records regulations: The Federal rules restrict any use of the information to criminally investigate or prosecute any alcohol or drug abuse patient.[facility] the event this information is protected by the Federal Confidentiality of Alcohol and Drug Abuse Patient Records regulations: The Federal rules restrict any use of the information to criminally investigate or prosecute any alcohol or drug abuse patient.[facility] the event this information is protected by the Federal Confidentiality of Alcohol and Drug Abuse Patient Records regulations: The Federal rules restrict any use of the information to criminally investigate or prosecute any alcohol or drug abuse patient.[facility] the event this information is protected by the Federal Confidentiality of Alcohol and Drug Abuse Patient Records regulations: The Federal rules restrict any use of the information to criminally investigate or prosecute any alcohol or drug abuse patient.[facility] the event this information is protected by the Federal Confidentiality of Alcohol and Drug Abuse Patient Records regulations: The Federal rules restrict any use of the information to criminally investigate or prosecute any alcohol or drug abuse patient.[facility] Reason for Visit (unrecogniz ed section and content) Reason Comments Results Reason Comments Cough Over 1 month Reason Comments STD Patient states he wa s exposed to gonorrhea about 1 week agoDenies symptoms at this time FOR RECORDS PERTAINING TO PATIENTS WHO ARE OR HAVE BEEN ENROLLED IN A CHEMICAL DEPENDENCY/SUBSTANCEABUSE PROGRAM, SOME INFORMATION MAY BE OMITTED. This clinical summary was aggregated from multiple sources. Caution should be exercised in using it in the provision of clinical care. This summary normalizes information from multiple sources, and as a consequence, information in this document may materially change the coding, format and clinical context of patient data. In addition, data may be omitted in some cases. CLINICAL DECISIONS SHOULD BE BASED ON THE PRIMARY CLINICAL RECORDS. [employer] provides no warranty or guarantee of the accuracy or completeness of information in this document.
== END 2023-09-02 12:19 | disposition home or self-care (01) ==
PROVIDERS: Emergency Provider Emergency Medicine; Visit Provider Emergency Medicine
DX: R04.1 Hemorrhage from throat (principal); R07.0 Pain in throat
CPT/HCPCS: 70360; 71046; 99282